=== PATIENT | female | born 1980 | race Caucasian/White ===

== ENCOUNTER 2017-05-29 12:26 | Observation (INO) | payer BC ==
[2017-05-29] MEDS ORDERED: RINGER'S SOLUTION,LACTATED 1,000 ML IV PRN (12:48)
[2017-05-29] MEDS: DEXTROSE 5%-LACTATED RINGERS 1,000 ML IV PRN (18:05)
[2017-05-30] MEDS: DEXTROSE 5%-LACTATED RINGERS 1,000 ML IV PRN (01:56)
--- NOTE | 2017-05-30 09:17 | DS ---
(1) Fetus or affected by maternal injury Problem: Acute (2) Threatened labor Problem: Acute Qualifiers: Trimester: third trimester Qualified Code(s): O47.03 - False labor before 37 completed weeks of gestation, third trimester Description of Stay: 28 wk IUP s/p fall at work yesterday at noon presented to L&D for evaluation. She was noted to have frequent uterine irritability and contractions of mild discomfort. She was kept overnight for prolonged observation due to her s/s. Throughout her stay the tracing remained reassuring with no decelerations. Her cervix remained closed with no change as well. She was discharged to home 20 hours after her fall with abruption and labor precautions. She was instructed to avoid heavy lifting or strenuous activity for one week and follow up in the office in 2 days as scheduled. Procedures Performed: see notes below - Nonstress test, continuous monitoring and tocodynameter, IV hydration Discharge Location: Home Disposition: Home self-care Condition: Good Discharge Activity: Other - No heavy lifting or strenuous activity for one week Discharge Diet: General/regular food Complete Home Medications List: Complete Home Medication List: Levothyroxine Sodium [Synthroid] 100 mcg PO DAILY 05/29/17 Vits96/Iron Fum/Folic [ S] 1 tab PO DAILY 05/29/17
== END 2017-05-30 07:30 | disposition home or self-care (01) ==
LOC: OBCLINIC 12:26 → OB 17:06 → INTOOBSV 17:06
PROVIDERS: ADMIT Obstetrics & Gynecology; ATTEND Obstetrics & Gynecology
DX: O60.02 Preterm labor without delivery, second trimester (principal); Z3A.27 27 weeks gestation of pregnancy; O09.522 Supervision of elderly multigravida, second trimester; O99.282 Endocrine, nutritional and metabolic diseases complicating pregnancy, second trimester; Z91.81 History of falling
CPT/HCPCS: 59025; 87081; G0378

== ENCOUNTER 2017-08-15 | Inpatient (IN) ==
[2017-08-15] MEDS ORDERED: ONDANSETRON HCL/PF 2 MG/ML VIAL IV PRN ×2 (00:06→19:30)
[2017-08-15] MEDS ORDERED: OXYTOCIN/DEXTROSE 5%-WATER 30 UNITS/500 ML BAG IV ONE (00:06)
[2017-08-15] MEDS ORDERED: RINGER'S SOLUTION,LACTATED 1,000 ML IV ONE (00:06)
[2017-08-15] MEDS ORDERED: MISOPROSTOL 100 MCG TABLET VG PRN (00:06)
[2017-08-15] MEDS ORDERED: LIDOCAINE HCL 50 ML VIAL PERI PRN (00:06)
[2017-08-15] MEDS: CLINDAMYCIN PHOSPHATE 900 MG in DEXTROSE 5 % IN WATER 100 ML IV SCH ×6 (00:50→16:37)
[2017-08-15] MEDS: MISOPROSTOL 100 MCG TABLET VG SCH (01:20)
[2017-08-15] MEDS ORDERED: MISOPROSTOL 100 MCG TABLET VG ONE (02:07)
[2017-08-15] MEDS: LEVOTHYROXINE SODIUM 100 MCG TABLET PO SCH (09:39)
[2017-08-15] MEDS: DEXTROSE 5%-LACTATED RINGERS 1,000 ML IV PRN ×2 (13:55→21:11)
--- NOTE | 2017-08-15 17:52 | PN ---
Progess Note - Interim Date: 08/15/17 Time: 17:48 Narrative: 08/15/17 17:48 Patient becoming more uncomfortable with contractions Vital signs stable. Pitocin at 6 mu/min. FHT: 130 baseline, reassuring Contractions q 1-2 min with frequent couplets Cervix: 2-3/60%/-2, cervical adhesive band broken digitally and Patino bulb catheter placed within cervix and inflated to 60 mL Impression: Intrauterine at 39 weeks induction of labor for advanced maternal age Plan: Will decrease Pitocin to 4 mU/m, increase ambulation, and position changes
[2017-08-15] MEDS ORDERED: fentaNYL CITRATE/PF 50 MCG/ML AMPUL IT SCH (19:30)
[2017-08-15] MEDS ORDERED: BUPIVACAINE HCL/0.9 % NACL/PF 250 ML EP PRN (19:30)
[2017-08-15] MEDS ORDERED: NALOXONE HCL 1 MG/1 ML SYRG IV PRN (19:30)
--- NOTE | 2017-08-15 23:23 | PN ---
Progess Note - Interim Date: 08/15/17 Time: 23:21 Narrative: 08/15/17 23:21 Patient comfortable with epidural Vital signs stable. Pitocin at 4 mu/min. FHT: 130 baseline, reassuring Contractions q 2-3 min Cervix: 4-5/50/-2, AROM-clear Impression: Intrauterine at 39 weeks induction of labor for advanced maternal age with history of recurrent loss Plan: Continue present plan
--- NOTE | 2017-08-15 23:30 | OR ---
Anesthesia Procedure Note - Anesthesia Procedure Note Narrative: Vital Signs - Last Taken Temp 36.5 C 08/15/17 22:47 Pulse 60 08/15/17 22:47 Resp 20 08/15/17 22:47 BP 109/60 08/15/17 22:47 Pulse Ox 98 08/15/17 22:47 08/15/17 23:29 ANESTHESIA PROCEDURE NOTE Date of Procedure: 08/15/2017 Time of procedure: 2250. Performed by: Tiburcio Singh CRNA Agricultural Specialist: None. Preprocedure diagnosis: Active labor. Post procedure diagnosis: Same. Procedure: Insertion of labor epidural. 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 Findings: See below. Details of the procedure: The patient was placed in a sitting position. Back was prepped with DuraPrep. Patient was then draped in a sterile fashion. Lidocaine 1% was infiltrated to the skin and subcutaneous tissues at the level of the L3 4 interspace. The epidural space was identified using a 18-gauge Tuohy needle with [id number] technique. 20 mcg fentanyl was given intrathecally using a 27 ga. spinal needle. Epidural catheter was inserted without difficulty. Negative test dose was elicited using 5 mL of 1.5% preservative-free lidocaine plus epinephrine 1 200,000. The epidural catheter was then taped and secured in place. EBL: Minimal. Fluids: N/A. Specimen: N/A. Post procedure condition: The patient tolerated the procedure well. No complications were noted. Thank you for this consultation. Morales CRNA
[2017-08-16] MEDS: CLINDAMYCIN PHOSPHATE 900 MG in DEXTROSE 5 % IN WATER 100 ML IV SCH ×2 (00:05)
[2017-08-16] MEDS: DEXTROSE 5%-LACTATED RINGERS 1,000 ML IV PRN (06:18)
[2017-08-16] MEDS: LEVOTHYROXINE SODIUM 100 MCG TABLET PO SCH (06:39)
[2017-08-16] MEDS ORDERED: BISACODYL 10 MG SUPP.RECT RC PRN (08:12)
[2017-08-16] MEDS ORDERED: HYDROCORTISONE 30 APPL TUBE TP PRN (08:12)
[2017-08-16] MEDS ORDERED: BENZOCAINE/MENTHOL 81 SPRAY CAN TP PRN (08:12)
[2017-08-16] MEDS ORDERED: GLYCERIN/WITCH HAZEL LEAF 40 APPL BOX TP PRN (08:12)
[2017-08-16] MEDS ORDERED: IBUPROFEN 800 MG TABLET PO PRN (08:12)
[2017-08-16] MEDS ORDERED: oxyCODONE HCL/ACETAMINOPHEN 1 TAB TABLET PO PRN ×2 (08:12)
[2017-08-16] MEDS ORDERED: OXYTOCIN/DEXTROSE 5%-WATER 30 UNITS/500 ML BAG IV ONE (08:12)
[2017-08-16] MEDS ORDERED: SENNOSIDES 8.6 MG TABLET PO PRN (08:12)
[2017-08-16] MEDS ORDERED: LEVOTHYROXINE SODIUM 100 MCG TABLET PO SCH (09:00)
--- NOTE | 2017-08-16 09:35 | OR ---
Operative Report - Dictated Report Narrative: Spontaneous vaginal delivery of viable male at 0751 on 08/16/2017 with Apgars 8 and 9, weighing 2439 g in YVETTE position Cord clamping delayed approximately 1 minute Placenta delivered complete, intact, with three vessel cord Estimated blood loss: less than 50 ml Anesthesia: epidural Lacerations: First-degree vaginal laceration (2cm) repaired with 3-0 Vicryl Rapide
[2017-08-16] MEDS: MISOPROSTOL 100 MCG TABLET VG SCH ×2 (12:12→12:13)
[2017-08-16] MEDS: DOCUSATE SODIUM 100 MG CAPSULE PO SCH ×2 (12:13→21:11)
[2017-08-17] MEDS: LEVOTHYROXINE SODIUM 100 MCG TABLET PO SCH ×2 (07:45→08:03)
[2017-08-17] MEDS: DOCUSATE SODIUM 100 MG CAPSULE PO SCH ×2 (08:39→21:13)
--- NOTE | 2017-08-17 18:45 | PN ---
Subjective - Date and Time Seen Date: 08/17/17 Time: 18:45 Objective - Vitals Vitals: Last Vital Signs Temp 37.2 C 08/17/17 13:45 Pulse 68 08/17/17 13:45 Resp 18 08/17/17 13:45 BP 103/63 08/17/17 13:45 Pulse Ox 97 08/17/17 13:45 Patient denies complaints. Breast-feeding well. Lochia wnl Abdomen - soft, nontender Uterus - firm, at umbilicus - 1 No calf tenderness Impression: day #1 - s/p spontaneous vaginal delivery. Plan: Continue routine care Cauti Physician Documentation - Urinary Catheter Management Urethral (Patino) Date of Insertion: 08/15/17 Time of Insertion: 23:55 Date of Removal: 08/16/17 Time of Removal: 07:29
[2017-08-18] MEDS ORDERED: LEVOTHYROXINE SODIUM 100 MCG TABLET PO SCH (07:00)
[2017-08-18] MEDS: LEVOTHYROXINE SODIUM 100 MCG TABLET PO SCH (07:23)
[2017-08-18] MEDS: DOCUSATE SODIUM 100 MG CAPSULE PO SCH (08:34)
--- NOTE | 2017-08-18 08:45 | PN ---
Subjective - Date and Time Seen Date: 08/18/17 Time: 08:44 Objective - Vitals Vitals: Last Vital Signs Temp 37.0 C 08/18/17 07:42 Pulse 62 08/18/17 07:42 Resp 18 08/18/17 07:42 BP 108/56 08/18/17 07:42 Pulse Ox 98 08/18/17 07:42 Patient denies complaints. Lochia wnl Abdomen - soft, nontender Uterus - firm, at umbilicus - 2 No calf tenderness Impression: day #2 - s/p spontaneous vaginal delivery. Plan: Routine discharge instructions Cauti Physician Documentation - Urinary Catheter Management Urethral (Patino) Date of Insertion: 08/15/17 Time of Insertion: 23:55 Date of Removal: 08/16/17 Time of Removal: 07:29
[2017-08-18] MEDS ORDERED: PRENATAL VITS96/IRON FUM/FOLIC 1 TAB TABLET PO SCH (09:00)
[2017-08-18 16:08] VITALS: BP 101/64
== END 2017-08-18 15:30 | disposition home or self-care (01) | DRG 775 ==
LOC: OB
PROVIDERS: ADMIT Obstetrics & Gynecology; ATTEND Obstetrics & Gynecology
DX: Z37.0 Single live birth; O99.284 Endocrine, nutritional and metabolic diseases complicating childbirth; O70.0 First degree perineal laceration during delivery; E03.9 Hypothyroidism, unspecified; Z3A.39 39 weeks gestation of pregnancy; O99.824 Streptococcus B carrier state complicating childbirth
CPT/HCPCS: 59025; J2405